=== PATIENT | male | born 1945 | race Caucasian/White ===

== ENCOUNTER 2017-06-13 11:20 | Emergency (ER) | payer MEDICARE, OTHER ==
[~2017-06-13] VITALS: Ht 188 cm; Wt 134.3 kg
[2017-06-13] MEDS ORDERED: ALLO100T PO (11:28)
[2017-06-13] MEDS ORDERED: LOSA50TA20 PO (11:28)
[2017-06-13] MEDS ORDERED: CINN500T PO (11:28)
[2017-06-13] MEDS ORDERED: VITA100L PO (11:28)
[2017-06-13 12:27] LABS: CALCIUM LEVEL 9.8 MG/DL (8.8-10.2); CREATININE FOR GFR 1.54 MG/DL (0.70-1.30); GLOMERULAR FILTRATION RATE 47.4 (>42)
[2017-06-13 12:41] LABS: ADD MANUAL DIFFER YES; MEAN CORPUSCULAR HEMOGLOBIN 30.2 pg (27.0-33.0); MEAN CORPUSCULAR HGB CONC 34.7 g/dl (32.0-36.5); MEAN CORPUSCULAR VOLUME 87.1 fl (80.0-96.0); PLATELET COUNT, AUTOMATED 159 k/mm3 (150-450); RED CELL DISTRIBUTION WIDTH 13.2 % (11.5-14.5); WHITE BLOOD COUNT 10.3 K/mm3 (4.0-10.0)
[2017-06-13] MEDS ORDERED: fentaNYL 100 MCG/2 ML INJECTION (J3010) IV ONE (13:30)
[2017-06-13] MEDS ORDERED: ISOVUE-370 76% 100ML VIAL (Q9967) As Ordered ONE (13:34)
--- NOTE | 2017-06-13 13:39 | REP ---
Portable chest x-ray: Single view. History: Dyspnea. Cough. Comparison study: January 19, 2012. Findings: EKG electrodes are seen. The lungs are well inflated and clear. Cardiomediastinal silhouette is unremarkable. No bony abnormality is seen. Pulmonary vasculature is not increased. Impression: No active disease. Signed by Peterson Zuñiga MD 06/13/2017 02:48 P
[2017-06-13] MEDS ORDERED: B-1210009 PO (14:25)
--- NOTE | 2017-06-13 14:47 | REP ---
CT study of the chest with IV contrast: History: Injury in a fall from ladder. No pneumothorax and rib fractures. Contrast enhancement dose: 100 mL of Isovue 370 is administered [address] CT study 01/22/2012. CT findings: There is a small, 25% left-sided pneumothorax confirmed. This collection appears largest in the anterior aspect of the lower chest where a 3.4 cm thick collection of gas has accumulated. There is some plate-like atelectasis in the left lower lobe. No pulmonary laceration is appreciated. Mediastinum shows no evidence of aortic injury or hematoma. No hilar or mediastinal mass or adenopathy is seen. There is no evidence of hemothorax or pericardial effusion. No contusion is seen in the lung harmon. No pulmonary nodule or mass lesion is observed. Bone window settings show nondisplaced fractures of the left third and 6th posterolateral ribs. No other skeletal fracture is seen. There is diffuse fatty infiltration seen in the liver. Cholelithiasis is noted. Visualized upper abdominal structures are otherwise unremarkable. Impression: 1. 25% left-sided pneumothorax. 2. Nondisplaced fractures left posterolateral 3rd, 5th and 6th ribs. 3. Discoid atelectasis left base. 4. Cholelithiasis. 5. Mild diffuse fatty infiltration of the liver. Signed by Peterson Zuñiga MD 06/13/2017 02:50 P
--- NOTE | 2017-06-13 14:48 | REP ---
CT abdomen and pelvis with IV but without oral contrast: History: Injury in a fall from a ladder. Left-sided pneumothorax and some rib fractures. Left upper quadrant bruising. CT contrast dose: 100 mL of Isovue [address] findings: There is mild diffuse fatty infiltration of the liver. No adrenal lesion is seen. There is no evidence of pneumoperitoneum or hemoperitoneum. There is a calcified gallstone in the dependent portion of the gallbladder. The pancreas is unremarkable. The kidneys enhance symmetrically and are morphologically intact. No retroperitoneal mass adenopathy or hematoma is seen. Small and large intestinal bowel loops are normal in the abdomen and pelvis. There is left colonic diverticulosis without CT evidence of diverticulitis. A normal appendix is seen in the right lower quadrant. There are dystrophic calcifications in the prostate gland. No abdominal wall defect is seen. There is bilateral L5 spondylolysis and a 7 mm degenerative grade 1 spondylolisthesis is seen at L5-S1. No fracture or other significant bony abnormality is seen. There is an old healed fracture of the inferior pubic ramus and superior pubic ramus on the right. Exam is otherwise unremarkable. Impression: 1. Fatty infiltration of the liver. 2. Cholelithiasis. 3. Left colonic diverticulosis. 4. Old healed right inferior and superior pubic ramus fractures. 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 5. No acute intra-abdominal injury. Signed by Peterson Zuñiga MD 06/13/2017 02:51 P
[2017-06-13] MEDS ORDERED: KETOROLAC 30 MG/ML VIAL (J1885) IV ONE (17:15)
[2017-06-13] MEDS ORDERED: PERCOCET 5MG/325MG TAB PO ONE (17:15)
[2017-06-13] MEDS ORDERED: PERC5TAB12 PO (22:13)
[2017-06-13] MEDS ORDERED: OXYCODONE/APAP 5MG/325MG(BULK FOR ED) 1 TABLET PO ONE (22:15)
[2017-06-13 22:57] VITALS: BP 154/74
--- NOTE | 2017-06-14 08:39 | REP ---
Chest x-ray: Two views: History: Pneumothorax. Comparison chest x-ray is from 09:07 a.m. on the same date. Findings: There is a small left-sided pneumothorax a little larger than on the 9 am film on this date, approximately 20%. No pleural effusion is seen. No infiltrate noted. Right lung remains clear. Mediastinum is not traumatically widened. Oxygen tubing and EKG electrodes are seen. Impression: Left-sided pneumothorax approximately 20%. This is slightly more prominent than on the earlier film. Signed by Peterson Zuñiga MD 06/14/2017 08:50 A
--- NOTE | 2017-06-14 21:24 | ECGEPIP ---
Stationary ECG Study [facility] - ED Test Date: 2017-06-13 Pat Name: BRITANY VERDUZCO Department: Room: - Gender: M [employer]ube [employer]er: [place] : 1945 Requested By: AGATHA Eugene Order Number: [id number] Reading MD: Jeni Schwartz Measurements Intervals [place] Rate: 71 P: 43 SC: 210 QRS: -45 QRSD: 111 T: 68 QT: 378 QTc: 412 Interpretive Statements SINUS RHYTHM WITH SINUS ARRHYTHMIA WITH FIRST DEGREE AV BLOCK MARKED LEFT AXIS DEVIATION MODERATE INTRAVENTRICULAR CONDUCTION DELAY NSTTW ABNORMALITY NO PRIOR FOR COMPARISON Electronically Signed On 06-14-2017 21:24:45 EDT by Jeni Schwartz
== END 2017-06-13 22:59 | disposition home or self-care (01) ==
LOC: M ED 11:20
DX: S22.42XA Multiple fractures of ribs, left side, initial encounter for closed fracture (principal); W11.XXXA Fall on and from ladder, initial encounter; Y92.009 Unspecified place in unspecified non-institutional (private) residence as the place of occurrence of the external cause; Y93.89 Activity, other specified; Y99.8 Other external cause status; J93.9 Pneumothorax, unspecified; I44.0 Atrioventricular block, first degree; I44.4 Left anterior fascicular block; I10 Essential (primary) hypertension
CPT/HCPCS: 71010; 71020; 71101; 71260; 74177; 80048; 85025; 93005; 93041; 94010; 94760; 96374; 96375; 99285; J1885; J3010; Q9967

== ENCOUNTER → 2017-06-13 | Outpatient (CLI) | payer MEDICARE, OTHER ==
[~2017-06-13] MED LIST: ALLO100T PO; B-1210009 PO; CINN500T PO; LOSA50TA20 PO; PERC5TAB12 PO; VITA100L PO
--- NOTE | 2017-06-13 10:25 | REP ---
Left rib series: Five views including PA chest. History: Contusion of the left anterior chest wall. Comparison chest x-ray January 19, 2012. Comparison chest CT study January 22, 2012. Findings: There is a small left-sided apical pneumothorax visible. There is discoid atelectasis in the left base, mild in degree. Right lung is clear. There is pleural thickening at the left apex superolaterally. Mediastinum is not widened. Heart is not enlarged. Multiple rib views demonstrate fractures involving the posterolateral segments of the left second, third, fifth and sixth ribs and probably the adjacent fourth rib. The left posterolateral third rib is displaced. Impression: Fractures of the posterolateral left second through sixth ribs with small left-sided pneumothorax. Discoid atelectasis left base. Signed by Peterson Zuñiga MD 06/13/2017 11:08 A
== END ==
LOC: M ADAMS 08:59
PROVIDERS: ATTEND Physician Assistant
DX: S22.42XA Multiple fractures of ribs, left side, initial encounter for closed fracture (principal); X58.XXXA Exposure to other specified factors, initial encounter; Y92.89 Other specified places as the place of occurrence of the external cause; Y93.89 Activity, other specified; Y99.8 Other external cause status

== ENCOUNTER → 2017-06-15 | Outpatient (CLI) | payer MEDICARE, OTHER ==
--- NOTE | 2017-06-15 10:22 | REP ---
Chest two views HISTORY: Pneumothorax Comparison: 06/13/2017 A small left pneumothorax is present unchanged compared to the previous study. The lungs are clear. The heart is normal in size. The pulmonary vasculature is normal in appearance. Degenerative change is present in the spine. IMPRESSION: No acute disease. Signed by Jarod Aparicio MD 06/15/2017 10:13 A
== END ==
LOC: M SMT 09:54
PROVIDERS: ATTEND Thoracic Surgery (Cardiothoracic Vascular Surgery)
DX: S27.0XXD Traumatic pneumothorax, subsequent encounter (principal); S22.42XS Multiple fractures of ribs, left side, sequela; X58.XXXD Exposure to other specified factors, subsequent encounter; Y92.89 Other specified places as the place of occurrence of the external cause; Y93.89 Activity, other specified; Y99.8 Other external cause status

== ENCOUNTER → 2017-07-02 | Outpatient (CLI) | payer MEDICARE, OTHER ==
--- NOTE | 2017-07-02 09:30 | REP ---
Clinical: Follow-up pneumothorax. Recent trauma . Comparison: 06/15/2017 . Technique: PA and lateral. Findings: The mediastinum and cardiac silhouette are normal. The lung harmon are clear and without acute consolidation, effusion, or pneumothorax. The previously identified left apical pneumothorax is not visualized on current examination and appears to have resolved. The known posterior left rib fractures are not identifiable on current x-ray. Impression: 1. No acute cardiopulmonary process. 2. Previous left apical pneumothorax resolved. 3. Known left rib fractures not visualized. Signed by Jamie Khan MD 07/02/2017 09:21 A
== END ==
LOC: M SMT 08:30
PROVIDERS: ATTEND Thoracic Surgery (Cardiothoracic Vascular Surgery)
DX: Z87.828 Personal history of other (healed) physical injury and trauma (principal)

== ENCOUNTER → 2017-10-20 | Outpatient (REF) | payer MEDICARE, OTHER | LOC: M LABDRAW1 10:24 | PROVIDERS: ATTEND Nurse Practitioner Adult Health | DX: N40.1 Benign prostatic hyperplasia with lower urinary tract symptoms (principal) ==

== ENCOUNTER → 2019-10-31 | Outpatient (REF) | payer MEDICARE, OTHER ==
[~2019-10-31] MED LIST changes: -LOSA50TA20 PO; +LOSA50TA88 PO
== END ==
LOC: M LABDRAW1 10:08
PROVIDERS: ATTEND Urology
DX: R31.21 Asymptomatic microscopic hematuria (principal)

== ENCOUNTER → 2020-04-18 | Outpatient (REF) | payer MEDICARE, OTHER | LOC: M LAB REF 11:31 | PROVIDERS: ATTEND Internal Medicine | DX: E79.0 Hyperuricemia without signs of inflammatory arthritis and tophaceous disease (principal) ==

== ENCOUNTER → 2020-10-29 | Outpatient (CLI) | payer MEDICARE, OTHER | LOC: M LAB 08:55 | PROVIDERS: ATTEND Nurse Practitioner Adult Health | DX: N40.1 Benign prostatic hyperplasia with lower urinary tract symptoms (principal) ==

== ENCOUNTER → 2021-05-14 | Outpatient (REF) | payer MEDICARE, OTHER | LOC: M LAB REF 12:11 | PROVIDERS: ATTEND Internal Medicine | DX: E79.0 Hyperuricemia without signs of inflammatory arthritis and tophaceous disease (principal); M15.9 Polyosteoarthritis, unspecified ==

== ENCOUNTER → 2021-11-21 | Outpatient (REF) | payer MEDICARE, OTHER ==
[~2021-11-21] MED LIST changes: +LOSA50TA28 PO; -LOSA50TA88 PO
== END ==
LOC: M LAB REF 11:46
PROVIDERS: ATTEND Internal Medicine
DX: E79.0 Hyperuricemia without signs of inflammatory arthritis and tophaceous disease (principal)

== ENCOUNTER → 2022-06-10 | Outpatient (REF) | payer MEDICARE, OTHER | LOC: M LAB REF 16:46 | PROVIDERS: ATTEND Internal Medicine | DX: E79.0 Hyperuricemia without signs of inflammatory arthritis and tophaceous disease (principal) ==

== ENCOUNTER → 2022-11-19 | Outpatient (CLI) | payer MEDICARE, OTHER ==
[2022-11-20 23:07] LABS: PSA TOTAL 0.4 ng/mL (0.0-4.0)
== END ==
LOC: M PLALAB 10:58
PROVIDERS: ATTEND Nurse Practitioner Adult Health
DX: N40.1 Benign prostatic hyperplasia with lower urinary tract symptoms (principal)

== ENCOUNTER → 2023-06-02 | Outpatient (REF) | payer MEDICARE, OTHER | LOC: M LAB REF 11:45 | PROVIDERS: ATTEND Internal Medicine | DX: E79.0 Hyperuricemia without signs of inflammatory arthritis and tophaceous disease (principal) ==

== ENCOUNTER → 2023-11-23 | Outpatient (REF) | payer MEDICARE, OTHER | LOC: M LABDRWAD 13:02 | PROVIDERS: ATTEND Nurse Practitioner Adult Health | DX: N40.1 Benign prostatic hyperplasia with lower urinary tract symptoms (principal) ==

== ENCOUNTER → 2023-12-08 | Outpatient (REF) | payer MEDICARE, OTHER ==
[2023-12-08 14:31] LABS: URIC ACID 4.1 MG/DL (3.7-9.2)
[2023-12-08 14:34] LABS: PHOSPHORUS LEVEL 3.5 MG/DL (2.4-5.1)
== END ==
LOC: M LAB REF 12:33
PROVIDERS: ATTEND Internal Medicine
DX: M15.9 Polyosteoarthritis, unspecified (principal)

== ENCOUNTER → 2024-01-06 | Outpatient (REF) | payer MEDICARE, OTHER ==
[2024-01-06 15:28] LABS: CREATININE FOR GFR 2.13 MG/DL (0.70-1.30)
== END ==
LOC: M LABDRWAD 13:08
PROVIDERS: ATTEND Nurse Practitioner Adult Health
DX: R31.21 Asymptomatic microscopic hematuria (principal)

== ENCOUNTER → 2024-06-15 | Outpatient (REF) | payer MEDICARE, OTHER ==
[2024-06-15 17:45] LABS: PHOSPHORUS LEVEL 3.5 MG/DL (2.4-5.1); PTH INTACT 30.5 PG/ML (18.5-88.0)
== END ==
LOC: M LAB REF 16:27
PROVIDERS: ATTEND Internal Medicine
DX: N18.32 Chronic kidney disease, stage 3b (principal); E79.0 Hyperuricemia without signs of inflammatory arthritis and tophaceous disease

== ENCOUNTER → 2024-10-27 | Outpatient (CLI) | payer MEDICARE, OTHER | LOC: M WUC 11:16 | PROVIDERS: ATTEND Nurse Practitioner Family | DX: R09.89 Other specified symptoms and signs involving the circulatory and respiratory systems (principal) ==

== ENCOUNTER → 2024-11-17 | Outpatient (REF) | payer MEDICARE, OTHER ==
[2024-11-17 16:03] LABS: PHOSPHORUS LEVEL 3.9 MG/DL (2.4-5.1); PTH INTACT 48.6 PG/ML (18.5-88.0); URIC ACID 3.2 MG/DL (3.7-9.2)
== END ==
LOC: M LAB REF 13:52
PROVIDERS: ATTEND Internal Medicine
DX: N18.4 Chronic kidney disease, stage 4 (severe) (principal)

== ENCOUNTER → 2025-06-16 | Outpatient (REF) | payer MEDICARE, OTHER ==
[2025-06-16 15:11] LABS: PHOSPHORUS LEVEL 3.8 MG/DL (2.4-5.1)
[2025-06-16 15:15] LABS: PTH INTACT 34.8 PG/ML (18.5-88.0)
== END ==
LOC: M LAB REF 14:12
PROVIDERS: ATTEND Internal Medicine
DX: N18.4 Chronic kidney disease, stage 4 (severe) (principal)